=== PATIENT | female | born 1945 | race American Indian/Alaskan Native ===

== ENCOUNTER 2018-11-09 10:25 | Day surgery (SDC) | payer MEDICARE ==
--- NOTE | 2018-11-09 11:12 | Anesthesia Day of Surgery ---
Anesthesia Day of Surgery - Day of Surgery Patient Examined: Yes Patient H&P Reviewed: Yes Patient is NPO: Yes
--- NOTE | 2018-11-09 11:18 | Anesthesia Consultation ---
Anesthesia Consult and Med Hx Date of service: 11/09/18 - Airway Anesthetic Teeth Evaluation: Good ROM Head & Neck: Adequate Mental/Hyoid Distance: Adequate Mallampati Class: Class II Intubation Access Assessment: Good - Pre-Operative Health Status ASA Pre-Surgery Classification: ASA3 Proposed Anesthetic Plan: MAC - Pre-Anesthesia Comment Pre-Anesthesia Comments: PONV. Can climb two flights of stairs - Pulmonary Hx Asthma: Yes Hx Pneumonia: Yes (HX) Hx Sleep Apnea: Yes (CPAP) - Cardiovascular System Hx Heart Murmur: Yes - Central Nervous System Hx Psychiatric Problems: Yes (Anxiety & Depression) - Gastrointestinal Hx Gastroesophageal Reflux Disease: Yes - Other Systems Hx Obesity: Yes
[2018-11-09] MEDS ORDERED: WATER FOR IRRIG STERILE ONE (11:45)
[2018-11-09] MEDS ORDERED: WATER FOR IRRIG STERILE IR ONE (11:45)
[2018-11-09] MEDS ORDERED: NACL 0.9% 1000 ML 1,000 ML IV SCH (12:00)
[2018-11-09] MEDS ORDERED: DIPRIVAN 10 MG/ML IV ONE (12:08)
[2018-11-09] MEDS ORDERED: VERSED ONE (12:08)
--- NOTE | 2018-11-09 13:05 | Operative Report ---
Operative Report Operative Report: Date of procedure: 11/09/2018 Procedure: Colonoscopy with Snare polypectomy and submucosal injection. Attending physician: Alon Adkins MD Stylist Apprentice: Alon Adkins MD Indication: Patient is a 41-year-old female who presents for colonoscopy to evaluate rectal bleeding and family history of colon cancer. This colonoscopy serves to evaluate patient so that treatment may be directed based on the findings. Consent: Informed consent was obtained after advising the patient and family regarding nature of this procedure, its indications, potential benefits as well as possible complications including but not limited to bleeding perforation and adverse reaction to medication, infection as well as other cardiopulmonary complications. An informed written and verbal consent was then obtained after due opportunity was provided for questions and answers. Monitoring: Patient was monitored continuously with pulse oximetry and electrocardiographic recordings as well as blood pressure recordings. Vital signs remained stable throughout this procedure with no untoward events. Preoperative assessment: Patient was assessed immediately prior to this procedure for capacity to tolerate monitored anesthesia care and moderate sedation as well as general anesthesia. Patient's ASA classification is 2, M allampati class is 2, Hyomental distance is 3. Instrument: Olympus video colonoscope [id number] Medications: Propofol given intravenously in divided doses. For details please refer to anesthesia records. Description of procedure: Patient was placed in the left lateral decubitus position after achieving sedation, a digital rectal examination was performed following which the colonoscope was introduced into the anal verge and advanced to the cecum which was identified by the cecal valve, the appendiceal orifice, as well as by the cecal strap and direct transillumination. The colonoscope was subsequently withdrawn with careful inspection of all mucosal surfaces. Patient tolerated this procedure well and was subsequently taken to the recovery room. The following findings were noted. Findings: Patient had a prominent fold in the mid ascending colon of unspecified significance. Several biopsies were obtained. The fold was then carefully inspected with narrow band white light. The characteristics were nonspecific. Proximal and distal margins were then injected with submucosal injection of spot, to tattoo the area. There also were multiple diminutive flat polyps of 3-4 mm in the sigmoid colon which were removed by cold biopsy polypectomy. Also in the sigmoid colon, there was a broad based 1.5 cm flat polyp which was elevated with submucosal injection of saline and removed by snare electrocautery and retrieved. A Hemoclip was placed at the polypectomy defect. Patient had moderate diverticulosis, involving the sigmoid and descending colon. Patient was noted to have prominent internal hemorrhoids seen on the retroflexed view at the anal verge. Impression: Prominent ascending colon mucosal fold status post cold biopsies, submucosal injection with tattoo of proximal and distal margins of the site. Large flat Sigmoid colon polyp, status post submucosal injection and snare polypectomy, Hemoclip application. Multiple diminutive sigmoid colon polyps status post cold biopsy polypectomy. Colonic Diverticulosis. Prominent Internal hemorrhoids. Plan: Follow pathology report. If the ascending colon biopsies showed presence of adenoma, she will need a limited resection of the area. High-fiber diet. Repeat colonoscopy within 6 months to 1 year due to polyp size May benefit from outpatient CRE hemorrhoid banding
--- NOTE | 2018-11-09 13:06 | Discharge Summary ---
Short Stay Discharge Plan Activity: advance as tolerated Weight Bearing Status: Weight Bear as Tolerated Diet: regular Additional Instructions: Post Sedation D/C Instructions When you return home you may resume your regular diet unless otherwise directed. -Go directly home from the hospital and rest quietly. You may resume normal activities tomorrow. - Do NOT drive, return to work, operate any machinery or make any important personal or business decisions today. -Do NOT drink any alcohol or take nerve or sleeping drugs. They add to the effects of the medicine still present in your body. No Aspirin or Aspirin products for 4 days. Follow up with: ANGELIQUE CARNEY MD [Primary Care Provider] - 7 Days
[2018-11-09 13:34] VITALS: BP 118/79
[2018-11-09] MEDS ORDERED: NEO SYNEPHRINE ONE (13:50)
[2018-11-09] MEDS ORDERED: ROBINUL ONE (13:50)
== END 2018-11-09 10:26 | disposition home or self-care (01) ==
LOC: GIO 10:25
PROVIDERS: ATTEND Internal Medicine Gastroenterology
DX: D12.5 Benign neoplasm of sigmoid colon (principal); D12.2 Benign neoplasm of ascending colon; K57.30 Diverticulosis of large intestine without perforation or abscess without bleeding; K64.8 Other hemorrhoids; E78.00 Pure hypercholesterolemia, unspecified; J45.909 Unspecified asthma, uncomplicated; G47.30 Sleep apnea, unspecified; K21.9 Gastro-esophageal reflux disease without esophagitis; E66.9 Obesity, unspecified; F32.9 Major depressive disorder, single episode, unspecified; F41.9 Anxiety disorder, unspecified; Z98.890 Other specified postprocedural states; Z88.5 Allergy status to narcotic agent; Z79.82 Long term (current) use of aspirin; Z79.899 Other long term (current) drug therapy; Z68.39 Body mass index [BMI] 39.0-39.9, adult; Z90.710 Acquired absence of both cervix and uterus; Z88.8 Allergy status to other drugs, medicaments and biological substances
CPT/HCPCS: 45380; 45381; 45385; 88305; J2250; J2704; J7030; J2370